=== PATIENT | female | born 1965 | race Caucasian/White ===

== ENCOUNTER 2022-09-21 13:58 | Outpatient (OUT) | payer OTHER, SELFPAY ==
[2022-09-21 14:45] LABS: Basophils Percent Auto 0.5 % (0.2-2.0); Eosinophils Absolute Auto 0.2 10^3/uL (0.0-0.7); Eosinophils Percent Auto 2.8 % (0.9-7.0); Hematocrit 44.8 % (36.0-48.0); Hemoglobin 15.4 g/dL (12.0-16.0); Immature Granulocytes Abs Auto 0.01 10^3/uL (0.00-0.03); Immature Granulocytes Pct Auto 0.2 % (0.0-0.5); Lymphocytes Absolute Auto 2.1 10^3/uL (1.2-3.8); Lymphocytes Percent Auto 37.2 % (20.5-60.0); Mean Corpuscular HGB Conc 34.4 g/dL (29.9-35.2); Mean Corpuscular Hemoglobin 32.8 pg (26.7-34.0); Mean Corpuscular Volume 95.3 fL (81.0-99.0); Mean Platelet Volume 8.8 fL (9.5-13.5); Monocytes Absolute Auto 0.4 10^3/uL (0.3-0.8); Monocytes Percent Auto 6.3 % (1.7-12.0); Platelet Count 229 10^3/uL (150-450); Red Cell Distribution Width 11.9 % (11.0-15.0); White Blood Count 5.7 10^3/uL (4.0-11.0)
[2022-09-21 15:13] LABS: Partial Thromboplastin Time 25.2 sec (22.3-36.2); Prothrombin Time 9.8 sec (9.0-11.6)
[2022-09-21 15:22] LABS: INR <0.93
== END 2022-09-21 13:59 ==
LOC: PST 14:03
PROVIDERS: PCP Family Medicine; Visit Provider Urology
DX: Z01.812 Encounter for preprocedural laboratory examination (principal); N20.0 Calculus of kidney; E78.5 Hyperlipidemia, unspecified; I10 Essential (primary) hypertension; G43.909 Migraine, unspecified, not intractable, without status migrainosus
CPT/HCPCS: 36415; 85025; 85610; 85730

== ENCOUNTER 2022-09-22 06:14 | Day surgery (SDC) | payer OTHER, SELFPAY ==
[2022-09-21 14:44] VITALS: BP 162/98; PULSE 95; RESP 20; TEMP 36.2; BMI 31.6
[2022-09-22] VITALS (11 sets, daily range): BP systolic 94–155; BP diastolic 71–107; PULSE 78–101; RESP 10–24; TEMP 36.5–36.9; O2SAT 92–98; BMI 4531.8
--- NOTE | 2022-09-22 | XR_ITS ---
The [address] [address] Patient Name: ROSE THURMAN MRN: [id number] date: 1965 Sex: F Assigned Patient Location: [facility] Current Patient Location: [facility] Accession/Order Number: [id number] Exam Date: 09/22/2022 06:30 Report Date: 09/22/2022 06:54 At the request of: OBED WHARTON Procedure: XR abdomen 1V EXAMINATION: XR abdomen 1V HISTORY: kidney stone COMPARISON: No relevant comparison available. FINDINGS: KIDNEY/URETER - RIGHT: No visible renal or ureteral calcifications. KIDNEY/URETER - LEFT: 5 mm stone projecting over superior pole of kidney. PELVIS: Multiple calcifications within the pelvis; nonspecific but favoring phleboliths. A distal ureteral stone cannot be completely excluded. BOWEL: No abnormal dilation or deviation. BONES: No acute abnormality. OTHER: Negative. No abnormal gaseous collections. IMPRESSION: 1. Left nephrolithiasis. 2. Distal ureteral stone cannot be excluded. 3. Examination is limited by dense overlying bowel content. No prior studies for comparison. Electronically authenticated by: SHITAL STUART Date: 09/22/2022 06:54
[2022-09-22] MEDS: LACTATED RINGER'S SOLUTION 1,000 ML 50 ML IV (07:07)
--- NOTE | 2022-09-22 07:10 | ECG_ITS ---
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
[2022-09-22] MEDS: CIPROFLOXACIN IN 5 % DEXTROSE 400 MG/200 ML PIGGYBACK 200 MG IV (07:30)
--- NOTE | 2022-09-22 08:06 | P.URON_ITS ---
Urology Surgery Operative Note Operative Note Procedure Date: 09/22/22 Time Out Performed: yes Pre-op Diagnosis: left renal calculus Post-op Diagnosis: same Procedures performed: #1. Left ESWL. Anesthesia: other (Gen. by LMA) Complications: none Estimated blood loss (mL): 0 Findings: left renal calculus 6 mm Specimens: none Drains: non- Indications for Procedures: this lady has a 5-6 mm left renal calculus which is nonobstructing. She now presents for left ESWL. She has signed an informed consent for this procedure after all the risks were explained. Some of these include bleeding, perinephric hematoma, infection and anesthesia. Detailed description of Procedure: the patient was brought to the operating room and placed on Siemens electromagnetic lithotripsy treatment table in the supine position. SCDs were placed on their lower extremities and turned on and functioning during the entire case. Timeout was done by all parties in the room. We all agreed upon the patient's identification and the planned procedures for this patient. Gen. anesthesia was then administered via LMA. Treatment head was then brought to the patient's correct side. While using fluoroscopy the stone was identified and lined up into the crosshairs. We then began applying shocks at power level II.0 and increased to a maximum power level of 3.5.she had fairly quick ectopy. After 300 shocks we then had to stop the procedure and start gating. Rest of the procedure was done in a gated fashion. intermittent fluoroscopy revealedwe had steady fragmentation. We applied a total of 2000 shocks. There was no evidence of stone remaining fluoroscopically at that time. The procedure was then terminated. She was then transferred to a [facility] bed and wheeled to PACU in stable condition. Other Provider present: No
== END 2022-09-22 09:25 | disposition home or self-care (01) ==
PROVIDERS: PCP Family Medicine; Visit Provider Urology
PROC: (CPT 50590; principal; 2022-09-22 07:30)
DX: N20.0 Calculus of kidney (principal); E78.5 Hyperlipidemia, unspecified; I10 Essential (primary) hypertension; Z79.899 Other long term (current) drug therapy; Z87.442 Personal history of urinary calculi; M19.90 Unspecified osteoarthritis, unspecified site; Z90.49 Acquired absence of other specified parts of digestive tract; Z98.51 Tubal ligation status
CPT/HCPCS: 50590; 36415; 74018; 93005; J2704